=== PATIENT | female | born 1955 | race Hispanic/Latino ===

== ENCOUNTER → 2021-06-20 | Outpatient (CLI) | payer MEDICARE | LOC: RAD 10:17 | PROVIDERS: ATTEND Family Medicine | DX: M25.562 Pain in left knee (principal); M25.561 Pain in right knee ==

== ENCOUNTER → 2022-07-23 | Outpatient (CLI) | payer MEDICARE, OTHER | LOC: RAD 09:09 | PROVIDERS: ATTEND Family Medicine | DX: M25.511 Pain in right shoulder (principal) ==